=== PATIENT | female | born 1985 | race Caucasian/White ===

== ENCOUNTER 2016-08-11 19:33 | Emergency (ER) | payer OTHER ==
[~2016-08-11] VITALS: Ht 157.5 cm; Wt 68.0 kg
[~2016-08-11 19:33] MED LIST: AUGMENTIN 875875 MG PO; BACTRIM DS TAB1 EACH PO; CORTISPORIN OTI10 M2 OTIC; FLAGYL500 MG PO; IBUPROFEN 600600 M1 PO; NAPROSYN500 MG PO; NOHOMEMEDICATIONS; NORCO 5-325 TA1 EACH PO; PERCOCET 5-3251 EACH PO; TORADOL 10 MG T10 MG PO; TRAMADOL 50 MG50 MG PO; ULTRAM 50MG TAB50 MG PO
[2016-08-11 20:05] LABS: URINE BILIRUBIN NEGATIVE (Negative); URINE BLOOD NEGATIVE (Negative); URINE COLOR YELLOW; URINE GLUCOSE-RANDOM* NEGATIVE (Negative); URINE KETONES NEGATIVE (Negative); URINE LEUKOCYTES-REFLEX NEGATIVE (Negative); URINE PROTEIN (DIPSTICK) NEGATIVE (Negative)
[2016-08-11 21:12] LABS: ABSOLUTE NEUTROPHILS 4.8 thou/uL (1.4-8.2); BASOPHILS 0.9 % (0.0-2.0); EOSINOPHILS 1.3 % (0.0-3.0); HEMATOCRIT 39.3 % (37.0-47.0); HEMOGLOBIN 13.5 gm/dL (12.0-15.0); LYMPHOCYTES 30.2 % (24.0-44.0); MANUAL DIFF NO; MCH 31.2 pg (26.0-34.0); MCHC 34.3 g/dL (28.0-37.0); PLATELET COUNT 298 thou/uL (150-400); POLYS 60.6 % (36.0-66.0); RBC 4.32 mil/uL (4.20-5.00); RDW 12.5 % (10.5-14.5)
[2016-08-11 21:23] LABS: CALCIUM 8.2 mg/dL (8.5-10.1); CREATININE 0.8 mg/dL (0.6-1.0); POTASSIUM 3.7 mmol/L (3.5-5.1)
[2016-08-11 21:32] LABS: ALBUMIN 3.8 g/dL (3.4-5.0); TOTAL BILIRUBIN 0.4 mg/dL (<0.1-1.0); TOTAL PROTEIN 7.4 g/dL (6.4-8.2)
[2016-08-11 22:09] VITALS: BP 115/70
[2016-08-11] MEDS ORDERED: ZOFRAN ODT4 MG DISSOLVE (22:30)
[2016-08-11] MEDS ORDERED: PEPCID40 MG PO (22:30)
[2016-08-11] MEDS ORDERED: TRAMADOL 50 MG50 MG PO (22:30)
== END 2016-08-11 22:52 | disposition home or self-care (01) ==
LOC: ER 19:33
PROVIDERS: Emergency Medicine
DX: R10.33 Periumbilical pain (principal); R10.32 Left lower quadrant pain; R10.31 Right lower quadrant pain

== ENCOUNTER 2017-09-06 15:34 | Emergency (ER) | payer OTHER ==
[~2017-09-06] VITALS: Ht 152.4 cm; Wt 63.5 kg
[~2017-09-06 15:34] MED LIST changes: +KEFLEX500 MG PO; +MOBIC15 MG PO; +PEPCID40 MG PO; +ZOFRAN ODT4 MG DISSOLVE
[2017-09-06] MEDS ORDERED: IBUPROFEN 600600 M1 PO (15:58)
[2017-09-06 16:09] VITALS: BP 127/84
== END 2017-09-06 16:09 | disposition home or self-care (01) ==
LOC: ER 15:34
DX: R21 Rash and other nonspecific skin eruption (principal)

== ENCOUNTER 2017-09-27 14:34 | Emergency (ER) | payer OTHER ==
[~2017-09-27] VITALS: Ht 154.9 cm; Wt 68.0 kg
[2017-09-27] MEDS ORDERED: AMOXICILLIN 50500 M1 PO (16:15)
[2017-09-27] MEDS ORDERED: TRAMADOL 50 MG50 MG PO (16:15)
[2017-09-27 16:59] VITALS: BP 140/92
== END 2017-09-27 17:02 | disposition home or self-care (01) ==
LOC: ER 14:34
DX: S02.31XA Fracture of orbital floor, right side, initial encounter for closed fracture (principal); Y04.8XXA Assault by other bodily force, initial encounter; Y92.89 Other specified places as the place of occurrence of the external cause; Y93.89 Activity, other specified; Y99.8 Other external cause status

== ENCOUNTER 2017-10-28 20:54 | Emergency (ER) | payer OTHER ==
[~2017-10-28] VITALS: Ht 154.9 cm; Wt 74.8 kg
[~2017-10-28 20:54] MED LIST changes: +AMOXICILLIN 50500 M1 PO
[2017-10-28 21:21] LABS: URINE BILIRUBIN ND (Negative); URINE BLOOD ND (Negative); URINE CLARITY TURBID; URINE COLOR RED; URINE GLUCOSE-RANDOM* ND (Negative); URINE KETONES ND (Negative); URINE LEUKOCYTES-REFLEX ND (Negative); URINE NITRITE-REFLEX ND (Negative); URINE PROTEIN (DIPSTICK) ND (Negative); URINE SPECIFIC GRAVITY ND (1.005-1.035); URINE UROBILINOGEN ND E.U./dl (0.2-1.0)
[2017-10-28 21:22] LABS: MUCUS >6 Heavy strn/LPF (None Seen); SQUAMOUS >10 Many /LPF (0-3)
[2017-10-28 21:23] LABS: BACTERIA-REFLEX >30 Many /HPF (None Seen); CASTS None Seen /LPF (None Seen); CRYSTALS None Seen /LPF (None Seen); URINE WBC-REFLEX 6-15 Few /HPF (0-5)
[2017-10-28] MEDS ORDERED: MACROBID 100 M100 M1 PO (21:46)
[2017-10-28] MEDS ORDERED: PHENAZOPYRIDIN200 M2 PO (21:46)
[2017-10-28 22:16] VITALS: BP 127/86
== END 2017-10-28 22:17 | disposition home or self-care (01) ==
LOC: ER 20:54
PROVIDERS: Nurse Practitioner Family
DX: N39.0 Urinary tract infection, site not specified (principal); Z98.890 Other specified postprocedural states; Z98.51 Tubal ligation status

== ENCOUNTER 2018-04-09 21:38 | Emergency (ER) | payer OTHER ==
[~2018-04-09] VITALS: Ht 154.9 cm; Wt 59.0 kg
[~2018-04-09 21:38] MED LIST changes: +MACROBID 100 M100 M1 PO; +PHENAZOPYRIDIN200 M2 PO
[2018-04-09] MEDS ORDERED: FLONASE 0.05%50 MCG NASAL (21:57)
[2018-04-09 22:29] VITALS: BP 106/66
== END 2018-04-09 22:23 | disposition home or self-care (01) ==
LOC: ER 21:38
DX: J06.9 Acute upper respiratory infection, unspecified (principal); H69.91 Unspecified Eustachian tube disorder, right ear; Z98.890 Other specified postprocedural states

== ENCOUNTER 2018-08-09 20:36 | Emergency (ER) | payer OTHER ==
[~2018-08-09] VITALS: Ht 154.9 cm; Wt 59.0 kg
[~2018-08-09 20:36] MED LIST changes: +FLONASE 0.05%50 MCG NASAL
[2018-08-09] MEDS ORDERED: PENICILLIN V P500 MG PO (22:04)
[2018-08-09] MEDS ORDERED: IBUPROFEN 600600 M1 PO (22:04)
[2018-08-09] MEDS ORDERED: ULTRAM 50MG TAB50 MG PO (22:04)
[2018-08-09 22:09] VITALS: BP 128/85
== END 2018-08-09 22:11 | disposition home or self-care (01) ==
LOC: ER 20:36
DX: M20.011 Mallet finger of right finger(s) (principal); K05.10 Chronic gingivitis, plaque induced; K01.1 Impacted teeth; Z98.890 Other specified postprocedural states

== ENCOUNTER 2019-01-20 19:30 | Emergency (ER) | payer OTHER ==
[~2019-01-20] VITALS: Ht 165.1 cm; Wt 68.0 kg
[~2019-01-20 19:30] MED LIST changes: +PENICILLIN V P500 MG PO
[2019-01-20] MEDS ORDERED: IBUPROFEN 600600 M1 PO (21:03)
[2019-01-20] MEDS ORDERED: DOXYCYCLINE 10100 MG PO (21:03)
[2019-01-20] MEDS ORDERED: NORCO 5-325 TA1 EAC1 PO (21:03)
[2019-01-20 21:21] VITALS: BP 156/101
== END 2019-01-20 21:22 | disposition home or self-care (01) ==
LOC: ER 19:30
DX: L03.112 Cellulitis of left axilla (principal); L02.412 Cutaneous abscess of left axilla; Z98.890 Other specified postprocedural states; Z98.51 Tubal ligation status